=== PATIENT | female | born 1960 | race Caucasian/White ===

== ENCOUNTER 2016-09-04 21:29 | Inpatient (IN) | payer BC ==
[~2016-09-04] VITALS: Ht 160 cm; Wt 90.6 kg
--- NOTE | ~2016-09-04 | HEMODYNAMI ---
PATIENT:GILMA LLOYD MEDICAL RECORD: [id number] : 62 [id number] ADMISSION DATE: 09/04/16 Generatedon:09/06/20167:17 Patient name: GILMA LLOYD Patient #: [id number] : 1960 Date of study: 09/05/2016 Page: Of Hemodynamic Procedure Report Patient Data Patient Demographics Procedure consent was obtained First Name: GILMA Gender: Female Last Name: PREMA : 1960 [facility] Initial: NIEVES Age: 56 year(s) Patient #: [id number] Race: Unknown SSN: [id number] Additional ID: [id number] Contact details Address: [facility] [employer] State: [place] City: [place] Zip code: [address] Past Medical History Allergies Allergen Reaction Date Comments Reported Other allergy 09/05/2016 Sulfa, Morphine, codeine, Hydrococone Admission Admission Data Admission Date: 09/04/2016 Admission Time: 23:45 Arrival Date: 09/05/2016 Arrival Time: 0:00 Admit Source: Other Room #: 2127 Weight (lbs.): 152.12 Weight (kg.): 69 Procedure Procedure Types Cath Procedure Diagnostic Procedure [facility] w/Coronaries PCI Procedure Coronary Stent Initial Miscellaneous Procedures Moderate Sedation up to 15 minutes Procedure Description Procedure Date Procedure Date: 09/05/2016 Procedure Start Time: 11:05 Procedure End Time: 11:23 Procedure Staff Name Function Andres Varghese RT Elastic Attacher Coverstitch Tea Szymanski RT Scrub Parminder Darden MD Performing Physician Denita Barrett RN Nurse Eunice Crzu RT Monitor Eloies Green RT Monitor Procedure Data Cath Procedure Fluoroscopy Diagnostic fluoroscopy Total fluoroscopy Time: 5.3 time: 5.3 min min Diagnostic fluoroscopy Total fluoroscopy dose: 399 dose: 399 mGy mGy Contrast Material Contrast Material Type Amount (ml) Isovue 300 149 Entry Location Entry Primary Successful Side Size Upsize Upsize Entry Closure Cortes ccessful Closure Location (Fr) 1 (Fr) 2 (Fr) Remarks Device Remarks Radial Right 6 Fr Mechanical artery Short Compression Estimated blood loss: 10 ml Diagnostic catheters Device Type Used For End Catheter Placement Terumo 5Fr [place] 110cm Procedure catheter Procedure Complications No complications Procedure Medications Medication Administration Route Dosage Oxygen NC 2 l/min Heparin Flush Bag added to field 2 bags (1000units/500ml NS) Lidocaine 2% added to field 20 Radial Cocktail added to field 1 syringe (Verapomil 2mg/Nitro 400mcg/Heparin 1500units) Versed I.V. 1 mg Fentanyl I.V. 50 mcg Radial Cocktail I.A. 1 syringe (Verapomil 2mg/Nitro 400mcg/Heparin 1500units) Versed I.V. 1 mg Fentanyl I.V. 50 mcg Fentanyl I.V. 50 mcg Heparin Bolus I.V. 4000 units Fentanyl I.V. 50 mcg Plavix P.O. 75 mg Hemodynamics Rest Heart Rate: 84 (bpm) Snapshots Pre Cath Intra NCS Post Cath Vital Signs Time Heart Resp SPO2 NIBP (mmHg) Rhythm Pain Sedation Rate (ipm) (%) Status Level (bpm) 10:55:54 77 16 98 132/77(101) NSR 0 (11) 10(A) , No pain 11:00:18 80 13 97 130/70(96) NSR 0 (11) 10(A) , No pain 11:04:38 85 16 96 124/71(104) NSR 0 (11) 10(A) , No pain 11:08:58 98 16 95 114/67(85) NSR 0 (11) 10(A) , No pain 11:13:12 103 16 98 132/77(98) NSR 0 (11) 10(A) , No pain 11:17:28 97 16 100 142/90(126) NSR 0 (11) 10(A) , No pain 11:21:48 97 12 100 152/88(130) NSR 0 (11) 10(A) , No pain Medications Time Medication Route Dose Verified Delivered Reason Note s Effectiveness by by 10:54:53 Oxygen NC 2 l/min Parminder Barger Per physician Katalina Barrett RN 10:55:00 Heparin Flush added 2 bags Parminder Parminder used for Bag to Katalina Darden MD procedure (1000units/500ml field NS) 10:55:07 Lidocaine 2% added 20ml Parminder Parminder used for to vial Katalina Darden MD procedure field 10:55:12 Radial Cocktail added 1 Parminder Zurita used for (Verapomil to syringe Katalina Darden MD procedure 2mg/Nitro field 400mcg/Hepari 11:05:21 Versed I.V. 1 mg Parminder Denita for sedation Katalina Barrett RN 11:05:27 Fentanyl I.V. 50 mcg Parminder Denita for sedation Katalina Barrett RN 11:05:47 Radial Cocktail I.A. 1 Parminder Parminder for (Verapomil syringe Katalina Darden MD vasodilation 2mg/Nitro 400mcg/Hepari 11:07:21 Versed I.V. 1 mg Parminder Denita for sedation Katalina Barrett RN 11:07:26 Fentanyl I.V. 50 mcg Parminder Denita for sedation Katalina Barrett RN 11:09:25 Fentanyl I.V. 50 mcg Parminder Denita for sedation Katalina Barrett RN 11:11:35 Fentanyl I.V. 50 mcg Parminder Denita for sedation Katalina Barrett RN 11:14:00 Heparin Bolus I.V. 4000 Parminder Denita for dose units Katalina Barrett RN anticoagulation verified wt dr darden 11:22:31 Plavix P.O. 75 mg Parminder Denita for Katalina Barrett RN antiplatelet therapy Procedure Log Time Note 10:43:12 Admit Source: Other 10:43:14 Arrival Date: 09/05/2016 12:00:00 AM 10:43:22 Patient Weight : 152.12 lbs 10:43:36 Diagnostic Cath Status : Elective 10:44:12 Andres CROWDER(R) sent for patient. Start room use. 10:44:41 Time tracking: Regular hours 10:44:46 Plan of Care:Hemodynamics will remain stable., Cardiac rhythm will remain stable., Comfort level will be maintained., Respiratory function will remain adequate., Patient/ family verbilizes understanding of procedure., Procedure tolerated without complication., Recovers from procedure without complications.. 10:44:55 Patient received from Med II to [facility] 3 Alert and oriented. Tannolbertoferred to table in Supine position. 10:44:56 Warm blankets applied, and liza hugger turned on for patient comfort. 10:44:57 Correct patient and procedure confirmed by team. 10:45:00 Signed procedure consent form obtained from patient. 10:45:11 H&P Date Dictated: 09/05/2016 Within 30 days and on chart.. 10:45:14 Pre-procedure instructions explained to patient. 10:45:17 Family in waiting room. 10:45:19 Patient NPO since Midnight. 10:45:56 Patient allergic to Other allergySulfa, Morphine, codeine, Hydrococone 10:54:34 Is the patient allergic to Iodine/contrast media? No. 10:54:37 Is patient on blood thinner?Yes 10:54:40 ACC The patient was administered the following blood thiners within the last 24 hours: ACCPlavix 10:54:43 Vital chart was started 10:54:43 Patient diabetic? No. 10:54:45 Snore? Yes 10:54:49 Sleep apnea? No 10:54:53 Oxygen 2 l/min NC was given by Denita Barrett RN; Per physician; 10:54:56 Dentures? No ? 10:55:00 Heparin Flush Bag (1000units/500ml NS) 2 bags added to field was given by Parminder Darden MD; used for procedure; 10:55:07 Lidocaine 2% 20ml vial added to field was given by Parminder Darden MD; used for procedure; 10:55:09 IV patent on arrival in right forearm with 0.9% NaCl at KVO. 10:55:12 Radial Cocktail (Verapomil 2mg/Nitro 400mcg/Heparin 1500units) 1 syringe added to field was given by Parminder Darden MD; used for procedure; 10:55:14 Lab results completed and on chart. 10:55:19 Right Radial & Right Groin area was prepped with chlora-prep and draped in sterile fashion 10:55:20 Alarms reviewed by R. N. 10:55:21 Sharps counted by scrub and verified by R.N. 10:55:22 Physician paged 10:55:31 Use device set Radial Dx 10:55:35 Cardinal Cath Pack opened to sterile field. 10:55:35 Acist Syringe opened to sterile field. 10:55:36 Terumo 6Fr Slender Glidesheath opened to sterile field. 10:55:36 Bag Decanter opened to sterile field. 10:55:37 Acist Hand Control opened to sterile field. 10:55:37 [place] 260cm J .035 wire opened to sterile field. 10:55:38 Acist Manifold opened to sterile field. 10:55:40 Tegaderm 4 x 4 opened to sterile field. 11:04:33 ECG and BP/O2 sat monitors applied to patient. 11:04:34 Baseline sample Acquired. 11:04:40 Rhythm: sinus rhythm 11::42 Full Disclosure recording started 11::47 --------ALL STOP TIME OUT------ 11::47 Physician arrived 11:04:48 Final Timeout: patient, procedure, and site verified with staff and physician. All members of the team are in agreement. 11:04:52 Right Radial & Right Groin site verified by team. 11:04:57 Physical assessment completed. ASA score P 2 - A patient with mild systemic disease as per Parminder Darden MD. 11:05:01 Sedation plan: IV Moderate Sedation Versed, Fentanyl 11:05:21 Versed 1 mg I.V. was given by Denita Barrett RN; for sedation; 11:05:27 Fentanyl 50 mcg I.V. was given by Denita Barrett RN; for sedation; 11:05:34 Procedure started. 11:05:47 Local anesthetic to right radial artery with Lidocaine 2% by Parminder Darden MD.INITIAL ACCESS ONLY 11:05:47 Radial Cocktail (Verapomil 2mg/Nitro 400mcg/Heparin 1500units) 1 syringe I.A. was given by Parminder Darden MD; for vasodilation; 11:05:57 A 6 Fr Short sheath was inserted into the Right Radial artery 11:06:14 Zero performed for pressure channel P1 11:06:23 Zero performed for pressure channel P1 11:06:52 A Terumo 5Fr [place] 110cm catheter was advanced over the wire and used for Procedure. 11:07:04 LV gram done using TAMEZ 11:07:21 Versed 1 mg I.V. was given by Denita [place] RN; for sedation; 11:07:26 Fentanyl 50 mcg I.V. was given by Denita Barrett RN; for sedation; 11:07:37 EF : 60 % 11:08:02 RCA angiography performed. 11:08:42 Catheter removed. 11:09:17 LCA angiography performed. 11:09:25 Fentanyl 50 mcg I.V. was given by Denita Barrett RN; for sedation; 11:09:53 EBU3.5 6fr inserted to veiw Left 11:11:35 Fentanyl 50 mcg I.V. was given by Denita Barrett RN; for sedation; 11:12:56 Catheter removed. 11:14:00 Heparin Bolus 4000 units I.V. was given by Denita Barrett RN; for anticoagulation; dose verified wt dr darden 11:14:03 Medtronic Launcher 6Fr EBU 3.5 guide catheter opened to sterile field. 11:15:13 SpineFrontierisper J 300cm 0.014 guide wire opened to sterile field. 11:15:20 Global MailExpressixCompak Inflation Kit opened to sterile field. 11:17:55 6 Fr EBU 3.5 guide catheter was inserted over the wire 11:18:01 Whis wire advanced. 11:18:03 Wire advanced across lesion. 11:18:14 Inflation number: 2 The stent balloon was then re-inflated across the Mid LAD to 11 AMIRT for 0:10 (min:sec). 11:18:21 Inflation Number: 1 A Medtronic Resolute 2.25 X 22 stent was prepped and advanced across the Mid LAD. The stent was deployed at 13 AMRIT for 0:10 (min:sec). 11:19:50 Inflation Number: 1 A Medtronic Resolute 2.25 X 14 stent was prepped and advanced across the Mid LAD1. The stent was deployed at 13 AMRIT for 1:10 (min:sec). 11:20:09 Inflation number: 2 The stent balloon was then re-inflated across the Mid LAD1 to 0 AMRIT for 0:00 (min:sec). 11:20:22 Guide catheter removed. 11:20:22 Wire removed. 11:20:38 Terumo TR Band Large opened to sterile field. 11:20:51 Sheath removed intact; hemostasis achieved with Mechanical Compression to the Right Radial artery. 11:20:54 Procedure ended.(Physican Out) 11:21:26 Fluoroscopy time 05.30 minutes. 11::31 Fluoroscopy dose: 399 mGy 11::31 Flurop Dose total: 399 11:21:46 Contrast amount:Isovue 300 149ml. 11:21:49 Sharps counted by scrub and verified by R.N. 11:21:56 TR band inflated with 12cc of air. 11:22:15 Insertion/operative site no bleeding no hematoma. 11:22:21 Post Procedure Pulses reassessed and unchanged 11:22:28 Post procedure rhythm: unchanged. 11:22:31 Plavix 75 mg P.O. was given by Denita Barrett RN; for antiplatelet therapy; 11:22:32 Estimated blood loss: 10 ml 11:22:33 Post procedure instruction explained to patient.Patient verbalizes understanding. 11:22:49 Procedure type changed to Cath procedure, Diagnostic procedure, LHC, LHC w/Coronaries, PCI procedure, Coronary Stent Initial, Miscellaneous Procedures, Moderate Sedation up to 15 minutes 11:22:50 Procedure and supply charges have been captured, reviewed, submitted and are correct. 11:23:37 Procedure Complication : No complications 11:23:40 Vital chart was stopped 11:23:41 See physician's report for complete and final results. 11:23:44 Report given to [facility]. 11:23:48 Patient transfered to [facility] with Bed. 11:23:50 Full Disclosure recording stopped 11:23:50 Procedure ended. 11:23:54 End room use (Document Last) 11:24:08 ACC-PCI Only Patient was given prescriptions, or instructed by Parminder Darden MD to start/continue the following medications upon discharge: Plavix Intervention Summary Intervention Notes Time ActionType Lesion and Equipment Action# Pressure Duration Attributes Used 11:18:14 Reinflate Mid LAD Medtronic 2 11 00:10 stent Resolute balloon 2.25 X 22 stent 11:18:21 Place stent Mid LAD Medtronic 1 13 00:10 Resolute 2.25 X 22 stent 11:19:50 Place stent Mid LAD1 Medtronic 1 13 01:10 Resolute 2.25 X 14 stent 11:20:09 Reinflate Mid LAD1 Medtronic 2 0 00:00 stent Resolute balloon 2.25 X 14 stent Device Usage Item Name Manufacture Quantity Catalog Hospital Part Current Minimal Lot# / Number Charge Number Stock Stock Serial# Code Acist Acist 1 69991 240634 729124 885941 20 Syringe Medical Systems Inc Cardinal Cardinal 1 [id number] 081074 36162 455833 5 Cath Pack Health Bag Microtek 1 2002S 896210 33175 370041 5 Scale Computing Medical Inc. Terumo 6Fr Terumo 1 [id number] 593340 689724 913449 [address] [place] [address] [place] 1 935043 375646 172902 010939 30 260cm J .035 wire Acist Hand Acist 1 97152 931357 078829 002313 5 Control Medical Systems Inc Acist Acist 1 73179 460619 010637 933521 5 Velti Systems Inc Tegaderm 4 3M 1 1626W 170920 090419 227681 5 x 4 Terumo 5Fr Terumo 1 40-7213 977965 933242 454663 5 [place] 110cm catheter Medtronic Medtronic 1 [id number] 752686 544210 480220 1 Launcher 5Fr EBU 3.5 guide catheter Medtronic Medtronic 2 [id number] 752347 07426 263888 3 Launcher 6Fr EBU 3.5 guide catheter Olmos Olmos 1 [id number] 997039 908927 485499 5 Whisper J Vascular 300cm 0.014 guide wire Merit Merit 1 [id number] 936018 631931 607338 15 [facility] Inflation Kit Medtronic Medtronic 1 [id number] 574147 454011 3 [id number] Resolute 2.25 X 22 stent Medtronic Medtronic 1 [id number] 881399 259907 7 [id number] Resolute 2.25 X 14 stent Terumo TR Terumo 1 [id number] 668729 309552 40 Band Large Signature Audit Anderson Stage Time Signature Unsigned Intra-Procedure 09/05/2016 Eunice Navas Counts 11:24:27 AM RT(R) RT(R) 09/06/2016 7:14:55 AM Intra-Procedure 09/06/2016 Eloise 7:17:17 AM Counts RT(R) Signatures Monitor : Eunice Cruz Signature : RT Date : Time : Monitor : Eloise Signature : Counts RT Date : Time : [address] [place] [address]
[2016-09-04 22:40] LABS: BASOPHILS 0.6 % (0.0-2.0); EOSINOPHILS 4.7 % (0-7); IMMATURE GRANULOCYTES 0.2 % (0-5); LYMPHOCYTES 28.8 % (15-50); MCH 28.8 pg (26.0-34.0); MCHC 32.4 g/dL (31.0-37.0); MCV 88.7 fL (80.0-100.0); MEAN PLATELET VOLUME 9.8 fL (7.4-10.4); MONOCYTES 10.2 % (2-11); NEUTROPHILS 55.5 % (40-80); PLATELET COUNT 272 10x3/uL (130-400); RBC 4.17 10x6/uL (4.00-5.40); RDW 13.5 % (11.5-14.5); WBC 6.6 10x3/uL (4.8-10.8)
[2016-09-04 22:51] LABS: APTT 23.6 SECONDS (22.8-39.4); INR 0.97 (0.85-1.17); PROTIME 12.7 SECONDS (11.6-15.0)
[2016-09-04 22:57] LABS: ALBUMIN 3.8 g/dL (3.4-5.0); ALKALINE PHOSPHATASE 79 U/L (46-116); ALT (SGPT) 33 U/L (10-68); BILIRUBIN - TOTAL 0.25 mg/dL (0.2-1.3); CALC OSMOLALITY 279 mosm/kg (275-300); CALCIUM 9.2 mg/dL (8.5-10.1); CARBON DIOXIDE 29.6 mmol/L (21.0-32.0); CHLORIDE - SERUM 102 mmol/L (98-107); CREATININE - SERUM 0.9 mg/dL (0.6-1.3); GLUCOSE 97 mg/dL (74-106); POTASSIUM - SERUM 3.8 mmol/L (3.5-5.1); SODIUM 140 mmol/L (136-145); UREA NITROGEN 16 mg/dL (7-18); eGFR NON AFRICAN AMERICAN 69 mL/min (90-120)
[2016-09-04 23:13] LABS: CREATINE KINASE 91 UL (21-215); LIPASE 151 U/L (73-393); PRO BNP 257 pg/mL (0-125)
[2016-09-04 23:19] LABS: APPEARANCE CLEAR (CLEAR); BILIRUBIN NEGATIVE (NEGATIVE); COLOR STRAW (YELLOW); GLUCOSE NEGATIVE (NEGATIVE); KETONE NEGATIVE (NEGATIVE); LEUKOCYTE ESTERASE NEGATIVE (NEGATIVE); NITRITE NEGATIVE (NEGATIVE); PROTEIN NEGATIVE (NEGATIVE); SPECIFIC GRAVITY 1.015 (1.005-1.020); UROBILINOGEN NORMAL (NORMAL)
[2016-09-04 23:19] LABS: TROPONIN-I 0.308 ng/mL (0.000-0.060)
--- NOTE | 2016-09-05 00:41 | NUR ---
RECEIVED REPORT FROM SELVIN IN ER, PT HAS A IV-LFRA, PLACED ON TELEMTRY,, DENIES ANY CHEST PAIN AT MOMENT, CALL LIGHT IN REACH. WILL CONTINUE TO DESI
[2016-09-05] MEDS ORDERED: CYMBALTA60 MG PO (00:45)
[2016-09-05] MEDS ORDERED: PREVACID15 MG PO (00:45)
[2016-09-05] MEDS ORDERED: ADVAIR 250/501 DISK INH (00:46)
[2016-09-05] MEDS ORDERED: CATAPRES0.1 MG PO (00:47)
[2016-09-05] MEDS ORDERED: LIPITOR40 MG PO (00:47)
[2016-09-05] MEDS ORDERED: OMEGA 3 FISH OI1 CAP PO (00:49)
[2016-09-05] MEDS ORDERED: CO Q-10200 MG PO (00:49)
[2016-09-05] MEDS ORDERED: GLUCOSAMINE & C1 CAP PO (00:50)
[2016-09-05] MEDS ORDERED: B-12 DOTS500 MCG PO (00:50)
[2016-09-05] MEDS ORDERED: VIACTIV SOFT C1 EACH PO (00:51)
[2016-09-05] MEDS ORDERED: MULTIPLE VITAMI1 TA1 PO (00:52)
[2016-09-05] MEDS ORDERED: AMBIEN5 MG PO (00:53)
[2016-09-05 01:22] VITALS: BP 146/84
--- NOTE | 2016-09-05 01:47 | NUR ---
STARTED D5 NS @125, [id number], DENIES ANY NEEDS, CALL LIGHT IN REACH, WILL CONTINUE TO MONITOR
[2016-09-05 03:13] VITALS: BP 146/84; Ht 160 cm; Wt 90.6 kg
--- NOTE | 2016-09-05 03:38 | NUR ---
EYES CLOSED, RESP UNLAB WITH NO S/S OF ACUTE DISTRESS NOTED. TELEMETRY SHOWING HR SR. UP AD BRYAN W/O DIFF. HOB UP SR UP X2, C/L IN REACH. CONTINUE TO MONITOR.
[2016-09-05 06:27] VITALS: BP 116/63
--- NOTE | 2016-09-05 07:30 | NUR ---
ASSESSMENT DONE. PT A/O. SITTIN UP IN BED WATCHING TV. DENIES CP OR SOB AT THIS TIME. CALL LIGHT WITH IN REACH. WILL CONT. TO MONITOR.
[2016-09-05 08:00] VITALS: BP 137/78
--- NOTE | 2016-09-05 08:23 | NUR ---
MICHELLE NEEDS AT THIS TIME. CALL LIGHT IN REACH. WILL CONT. PLAN OF CARE.
--- NOTE | 2016-09-05 09:20 | NUR ---
FAMILY IN ROOM. PT DENIES PAIN OR DISCOMFORT. CONSENTS FOR HEART CATH SIGNED. CALL LIGHT WITH IN REACH. WILL CONT. TO MONITOR.
[2016-09-05 09:24] LABS: ANION GAP 10.6 mmol/L (8-16); CALCIUM 9.4 mg/dL (8.5-10.1); CARBON DIOXIDE 30.1 mmol/L (21.0-32.0); CREATININE - SERUM 0.9 mg/dL (0.6-1.3); POTASSIUM - SERUM 3.7 mmol/L (3.5-5.1)
[2016-09-05 09:34] LABS: BASOPHILS 0.6 % (0.0-2.0); HEMATOCRIT 35.2 % (36.0-48.0); HEMOGLOBIN 11.5 g/dL (12-16); IMMATURE GRANULOCYTES 0.2 % (0-5); LYMPHOCYTES 32.9 % (15-50); MCHC 32.7 g/dL (31.0-37.0); MCV 88.7 fL (80.0-100.0); MEAN PLATELET VOLUME 10.4 fL (7.4-10.4); MONOCYTES 9.1 % (2-11); NEUTROPHILS 51.2 % (40-80); PLATELET COUNT 257 10x3/uL (130-400); RBC 3.97 10x6/uL (4.00-5.40); RDW 13.7 % (11.5-14.5); WBC 6.2 10x3/uL (4.8-10.8)
--- NOTE | 2016-09-05 10:00 | NUR ---
PRE-OP MEDS GIVEN
--- NOTE | 2016-09-05 10:34 | NUR ---
PT TO CNC SET UP OPERATOR VIA BED. PT'S FAMILY IN ROOM.
--- NOTE | 2016-09-05 11:40 | NUR ---
PT BACK FROM METROLOGY ENGINEER. A/O X3. TR BAND TO RIGHT WRIST. NO S/S OF BLEEDING OR HEMATOMA. FAMILY IN ROOM. PT GIVEN WATER. TRAY ORDERED. CALL LIGHT WITH IN REACH. WILL CONT. TO MONITOR. VS- B/P- 126/62, P-84, O2-95% ON RA.
[2016-09-05] MEDS ORDERED: ASPIRIN325 MG PO (12:28)
[2016-09-05] MEDS ORDERED: TENORMIN25 MG PO (12:29)
[2016-09-05] MEDS ORDERED: PLAVIX75 MG PO (12:29)
--- NOTE | 2016-09-05 12:54 | NUR ---
Patient Name: GILMA LLOYD Admission Status: ER Accout number: [id number] Admission Date: 09-04-2016 : 1960 Admission Diagnosis:NON-ST ELEVATION (NSTEMI) MYOCARDIAL INFARCTION Attending: ROSELINE Current LOS: 1 Anticipated DC Date: 09-05-2016 Planned Disposition: Home Primary Insurance: Visual Threat EXCHANGE Discharge Planning Comments: * Is the patient Alert and Oriented? Yes 0 * How many steps to enter\exit or inside your home? 8-10 0 * PCP DR. ARELLANO 0 * Pharmacy [facility] 0 * Preadmission Environment Home with Family 0 * ADLs Independent 0 * Equipment None 0 * Other Equipment [employer],- MEDICAL EQUIPMENT PROVIDER PREFERENCE 0 * List name and contact numbers for known caregivers / representatives who currently or will assist patient after discharge: AMARJIT LLOYD, SPOUSE, 0 * Community resources currently utilized None 0 * Please name any agencies selected above. NONE 0 * Additional services required to return to the preadmission environment? No 0 * Can the patient safely return to the preadmission environment? Yes 0 * Has this patient been hospitalized within the prior 30 days at any hospital? No 0 CM MET WITH PT AND SPOUSE IN ROOM TO DISCUSS DISCHARGE PLANNING AND NEEDS. PT REPORTS LIVING AT HOME INDEPENDENTLY WITH HER SPOUSE. PT HAS NO MEDICAL EQUIPMENT AND NO OUTSIDE SERVICES ASSISTING IN THE HOME. CM DISCUSSED AVAILABILITY OF HOME HEALTH, REHAB SERVICES AND MEDICAL EQUIPMENT. PT DENIES DISCHARGE NEEDS, REPORTS HER SPOUSE WILL TRANSPORT HER FOR DISCHARGE HOME. PT PLANS TO DISCHARGE HOME WITH SPOUSE, DENIES DISCHARGE NEEDS. CM TO FOLLOW AND ASSIST NEEDED. Supervising Editor Trailer: Kade Mittal
--- NOTE | 2016-09-05 13:12 | NUR ---
PT RESTING. TR BAND IN PLACE. NO S/S OF BLEEDING OR HEMATOMA. CALL LIGHT WITH IN REACH. WILL CONT. TO MONITOR.
--- NOTE | 2016-09-05 13:35 | NUR ---
PT CALLED NURSE INTO ROOM AND C/O INCREASE PAIN IN RIGHT ARM. NURSE NOTED PT'S RT FOREARM WAS SWOLLEN AND HARD TO THE TOUCH. PT C/O PAIN WITH MOVEMENT OF THE ARM. NURSE ATTEMPTED TO RELEASE SOME AIR FROM TR BAND, AND CATH SITE STARTED TO BRUISE, SO AIR WAS PUT BACK IN. THIS NURSE CALL JANNET DIAS IN TO PT'S ROOM TO ASSESS. CALLED [facility] TO COME ASSESS PER JANNET'S ASSESSMENT. SRIRAM DELACRUZ FROM [facility] ARRIVE TO PT'S ROOM TO ASSESS SITE. FROM THERE PRESSURE WAS APPLIED TO PT'S RIGHT AC, AND FEM-STOP APPLIED TO HOLD PRESSURE. WILL RE-ASSESS.
--- NOTE | 2016-09-05 15:23 | NUR ---
ADRIAN FROM [facility] PICK UP WORKER HERE. HEMATOMA TO PT'S RT ARM NOT IMPROVING. FEM-STOP APPLIED. PT C/O NAUSEA. ZOFRAN GIVEN. VS- 135/60, P-83, O2- 96 OR RA. WILL CONT. TO MONITOR.
[2016-09-05 16:00] VITALS: BP 135/60
--- NOTE | 2016-09-05 16:00 | NUR ---
DR. HANNA HERE. ASSESSED PT. PT TO STAY ANOTHER NIGHT FOR NURSES TO MONITOR. NO NEW ORDERS GIVEN.
--- NOTE | 2016-09-05 16:15 | NUR ---
FEM-STOP LOOSENED PER ADRIAN FOR BENCH WORKER HELPER. RADIAL PULSE PALPABLE. HEMATOMA STABLE AT THIS TIME. WILL CONT. TO MONITOR. WAS TOLD PER ADRIAN TO LEAVE ON ANOTHER 30 MINS, 1 HOUR TOTAL THEN REMOVE AND ASSESS.
--- NOTE | 2016-09-05 17:25 | NUR ---
FEM-STOP REMOVED. PT DENIES INCREASE PAIN OR STINGING AT SITE. NO NEW SWELLING TO SITE AT THIS TIME. SKIN LOOSE. WILL MONITOR. FAMILY AT BEDSIDE. PT A/O. CALL LIGHT WITH IN REACH.
--- NOTE | 2016-09-05 18:22 | NUR ---
SLIGHT SWELLING TO PT'S RIGHT FA NOTED. PT DENIES INCREASE IN PAIN IN AREA. ENCOURGED PT KEEP ARM STILL AND ELEVATE ON PILLOWS. WRAPPED IN WARM BLANKET. WILL MONITOR.
[2016-09-05 20:02] VITALS: BP 187/92
--- NOTE | 2016-09-05 20:10 | NUR ---
DEMEROL 25 MG GIVEN FOR C/O PAIN TO CHEST AND RIGHT ARM, WILL CONT TO MONITOR.
--- NOTE | 2016-09-05 21:15 | NUR ---
PT RESTING ON LEFT SIDE, RESPERATIONS EVEN, PT STATES THAT PAIN IS BETTER. DAUGHTER AT BED SIDE, BED LOW, CL IN REACH.
--- NOTE | 2016-09-06 01:04 | NUR ---
RESTING WITH EYES CLOSED, RESPERATIONS EVEN, NO S/S DISTRESS NOTED.
[2016-09-06 01:11] VITALS: BP 161/89
[2016-09-06 04:36] VITALS: BP 180/84
--- NOTE | 2016-09-06 07:49 | NUR ---
ASSESSMENT DONE. PT SITTING UP IN BED. A/O. FAMILY IN ROOM. PT'S RIGHT FOREARM STILL SWOLLEN, BUT SOFT. PT DENIES PAIN, STATES "IT IS JUST SORE." CATH SITE TO RIGHT WRIST WNL. PT DENIES CP OR SOB. STATES SHE JUST HAS MUSCLE SORENESS FROM BEING IN BED. IS READY TO GO HOME. CALL LIGHT WITH IN REACH. WILL CONT. TO MONITOR.
[2016-09-06 08:00] VITALS: BP 171/84
--- NOTE | 2016-09-06 09:23 | NUR ---
DISCHARGE INSTRUCTIONS GIVEN TO PT. IV AND TELEMETRY REMOVED. RX'S GIVEN TO PT. INSTRUCTED PT TO WATCH FOR S/S OF BLEEDING/HEMATOMA TO RIGHT ARM. PT VERBALIZED UNDERSTANDING. PT AWAITING RIDE HOME.
--- NOTE | 2016-09-06 09:35 | NUR ---
PT D/C HOME VIA PRIVATE VEHICLE. PT AMBULATED OUT WITH MILL TENDER WARM UP FOLLOWING.
--- NOTE | 2016-09-06 13:59 | DS ---
PATIENT:GILMA LLOYD :62 MEDICAL RECORD: [id number] DISCHARGE SUMMARY ADMISSION DATE: 09/04/16 DISCHARGE DATE: 09/06/16 DIAGNOSES: 1. Non-Q-wave myocardial infarction. 2. Unstable angina. 3. PTCA stent left anterior descending this admission. 4. Hypertension. 5. Hyperlipidemia. HOSPITAL COURSE: Mrs. Lloyd presents with a non-Q-wave myocardial infarction, found to have single vessel disease to the LAD, underwent successful PTCA stent of the LAD, was discharged home with the addition of atenolol, Plavix to her medical regimen. To continue her Lipitor and aspirin. We will follow up with [facility] in 1 month. TRANSINT:[id number] Voice Confirmation ID: [id number] DOCUMENT ID: [id number] JERAMIE HANNA MD at 1359 CC: [id number] DICTATION DATE: 09/05/16 1124 REGULATORY LAW SPECIALIST: 09/05/16 1359 DIS IN 09/06/[address] [address]
--- NOTE | 2016-09-06 13:59 | OP ---
PATIENT NAME: GILMA LLOYD MEDICAL RECORD: [id number] :[birth year] LOCATION:D.M2 D.2127 ADMISSION DATE:09/04/16 SURGEON: JERAMIE HANNA MD DATE OF OPERATION: 09/05/2016 PROCEDURES: 1. PTCA stent to LAD. 2. Left heart catheterization. 3. Selective coronary angiography. 4. Left ventriculogram. INDICATIONS: Non-Q-wave myocardial infarction and coronary artery disease. PROCEDURE IN DETAIL: After informed consent was obtained and after detailed explanation of risks, benefits as well as alternative therapies, the patient elected to proceed with angiogram and angioplasty. The right radial area was prepped and draped in normal sterile fashion. The right radial artery was cannulated via modified Seldinger technique with placement of 6-Nigerien sheath. All catheters exchanged through this sheath. FINDINGS: Left ventriculogram was performed in standard 30-degree TAMEZ view, reveals good cardiac wall motion throughout all segments. Overall ejection fraction estimated at 60%. SELECTIVE CORONARY ANGIOGRAPHY: 1. Left main is with no significant angiographic disease. 2. Left anterior descending has a long area of 75% stenosis in the mid vessel. 3. Left circumflex shows mild irregularities, but no flow-limiting stenosis. 4. Right coronary has mild irregularities, but no flow-limiting stenosis. PTCA STENT OF THE LAD: The stent used was a 2.25 x 22 and 2.25 x 14, both Resolute stents. Result was 0% residual stenosis. OVERALL IMPRESSION: Successful percutaneous transluminal coronary angioplasty stent of the left anterior descending going from 75% initial stenosis to 0% residual. TRANSINT:[id number] Voice Confirmation ID: [id number] DOCUMENT ID: [id number] JERAMIE HANNA MD at 1359 CC: [id number] DICTATION DATE: 09/05/16 1126 WORK ORDER CLERK: 09/05/16 1224 DIS IN 09/06/16 [place] [id number]
--- NOTE | 2016-09-06 13:59 | HP ---
PATIENT: GILMA LLOYD MEDICAL RECORD: [id number] ACCOUNT: [id number] LOCATION:D. D.2127 : 62 ADMISSION DATE: 09/04/16 HISTORY AND PHYSICAL EXAMINATION HISTORY OF PRESENT ILLNESS: This is a 56-year-old female with no known cardiovascular history, who presented to the Emergency Department with a 3-day history of intermittent chest pain. She describes the pain as a heavy sensation that is in the mid sternal chest that radiates in her bilateral arms and jaw. She also has noted some dyspnea on exertion over the last several weeks and increasing fatigue. Her EKG shows normal sinus rhythm with no ST segment changes. She did have an elevated troponin at 1.06. CLINICAL IMPRESSION: Non-Q-wave myocardial infarction, therefore we will proceed with a left heart catheterization to further risk stratify. MEDICATIONS: 1. Lipitor 40 daily. 2. Fish oil daily. 3. Clonidine 0.1 daily. 4. A 325 aspirin daily. 5. Cymbalta 60 mg daily. 6. Ambien 5 mg q.h.s. p.r.n. 7. Advair Diskus 1 puff daily. 8. Prevacid 15 daily. 9. Multivitamin daily. REVIEW OF SYSTEMS: Per HPI. PHYSICAL EXAMINATION: GENERAL SURVEY: Reveals a well-developed, well-nourished, obese female who is in no distress at the time of the exam. VITAL SIGNS: Stable. HEENT: Head is normocephalic. Pupils are equal and reactive to light and accommodation. Extraocular muscle movements are intact. Mucous membranes are pink and moist. NECK: Supple. The trachea is midline. There is no JVD or carotid bruits. CARDIOVASCULAR: Reveals a regular rate and rhythm without murmur, gallop or rub. LUNGS: Clear and equal bilaterally. ABDOMEN: Soft, nontender. Bowel sounds are positive. EXTREMITIES: She has no clubbing, cyanosis or edema. NEUROLOGIC: Cranial nerves II-XII are grossly intact. LABORATORY DATA: Have been reviewed. ASSESSMENT AND PLAN: 1. Non-Q-wave myocardial infarction. 2. Acute coronary syndrome. 3. Hypertension. 4. Morbid obesity. RECOMMENDATIONS: Left heart catheterization to further risk stratify. TRANSINT:[id number] Voice Confirmation ID: [id number] DOCUMENT ID: [id number] HISTORY AND PHYSICAL [id number] GILMA LLODY Dictated By: RADHA HUERTAS I have interviewed/examined the above patient and agree with these documented findings. JERAMIE HANNA MD at 1359 at 0948 CC: [id number] DICTATION DATE: 09/05/16 0850 MARKETING CONTENT MANAGER: 09/05/16 0916 DIS IN 09/06/16 [facility] [address] [place] [address]
== END 2016-09-06 09:35 | disposition home or self-care (01) | DRG 247 ==
LOC: D.ER 21:29 → D.M2 23:45
PROVIDERS: Emergency Medicine; ADMIT Internal Medicine Interventional Cardiology
PROC: B2111ZZ Fluoroscopy of Multiple Coronary Arteries using Low Osmolar Contrast (ICD-10-PCS; 2016-09-05)
PROC: B2151ZZ Fluoroscopy of Left Heart using Low Osmolar Contrast (ICD-10-PCS; 2016-09-05)
PROC: 027035Z Dilation of Coronary Artery, One Artery with Two Drug-eluting Intraluminal Devices, Percutaneous Approach (ICD-10-PCS; principal; 2016-09-05 11:00)
PROC: 4A023N7 Measurement of Cardiac Sampling and Pressure, Left Heart, Percutaneous Approach (ICD-10-PCS; 2016-09-05 11:00)
DX: I21.4 Non-ST elevation (NSTEMI) myocardial infarction (principal); I10 Essential (primary) hypertension; E66.01 Morbid (severe) obesity due to excess calories; Z68.34 Body mass index [BMI] 34.0-34.9, adult; I25.110 Atherosclerotic heart disease of native coronary artery with unstable angina pectoris; E78.5 Hyperlipidemia, unspecified

== ENCOUNTER → 2017-03-14 16:35 | Outpatient (CLI) | payer BC ==
[2016-09-05 03:13] VITALS: BMI 34.9
[~2017-03-14 16:35] MED LIST: ADVAIR 250/501 DISK INH; AMBIEN5 MG PO; ASPIRIN325 MG PO; B-12 DOTS500 MCG PO; CATAPRES0.1 MG PO; CO Q-10200 MG PO; CYMBALTA60 MG PO; GLUCOSAMINE & C1 CAP PO; LIPITOR40 MG PO; MULTIPLE VITAMI1 TA1 PO; OMEGA 3 FISH OI1 CAP PO; PLAVIX75 MG PO; PREVACID15 MG PO; TENORMIN25 MG PO; VIACTIV SOFT C1 EACH PO
== END | disposition home or self-care (01) ==
LOC: D.MAMMO 08:00
DX: Z12.31 Encounter for screening mammogram for malignant neoplasm of breast (principal)

== ENCOUNTER → 2018-04-02 19:13 | Outpatient (CLI) | payer BC ==
[2016-09-05 03:13] VITALS: BMI 34.9
== END | disposition home or self-care (01) ==
LOC: D.MAMMO 11:15
DX: Z12.31 Encounter for screening mammogram for malignant neoplasm of breast (principal)

== ENCOUNTER 2020-11-03 11:15 | Outpatient (CLI) | payer BC ==
[2020-08-30 17:19] VITALS: BMI 34.9
[~2020-11-03 11:15] MED LIST changes: +ATIVAN0.5 MG; +BUPROPION XL300 MG PO; +CALCIUM 600 +1 EAC3 PO; +CLOTRIM ANTIFUN15 GM TOPICAL; +ELIQUIS2.5 MG PO; +MAG-OX 400 MG400 MG PO; +NORVASC5 MG PO; +OXYCODONE HCL5 M1 PO; +VISTARIL50 MG PO; +[UNRECOGNIZED DRUG - OTHER]
== END 2020-11-03 23:59 | disposition home or self-care (01) ==
LOC: D.MAMMO 11:15
PROVIDERS: ATTEND Family Medicine
DX: Z12.31 Encounter for screening mammogram for malignant neoplasm of breast (principal)